=== PATIENT | male | born 1935 | race Caucasian/White ===

== ENCOUNTER → 2016-05-04 | Outpatient (CLI) | payer MEDICARE ==
[2016-05-04 10:56] LABS: CHOLESTEROL 166.31 mg/dL (0-200); Direct HDL 70 mg/dL (>40); TRIGLYCERIDES 105 mg/dL (<150)
[2016-05-04 11:06] LABS: DIRECT LDL 61 mg/dL (<100)
== END ==
LOC: OD 09:46
PROVIDERS: ATTEND Internal Medicine
DX: E78.5 Hyperlipidemia, unspecified (principal); E55.9 Vitamin D deficiency, unspecified; E03.9 Hypothyroidism, unspecified
CPT/HCPCS: 36415; 80061; 82306; 84443

== ENCOUNTER 2016-06-05 19:14 | Emergency (ER) | payer MEDICARE ==
--- NOTE | 2016-06-05 19:24 | ER Document Report ---
ED Medical Screen (RME) - General Stated Complaint: SHORTNESS OF BREATH Mode of Arrival: Wheelchair Information source: Patient, Relative Notes: pt presents with c/o SOB, leg pain, and SARAH that started today. Pt has hx of dementia. Denies CAD, hx HTN, hypothyroid. Denies v/d/f. I have greeted and performed a rapid initial assessment of this patient. A comprehensive ED assessment and evaluation of the patient, analysis of test results and completion of the medical decision making process will be conducted by additional ED providers. TRAVEL OUTSIDE OF THE [place] IN LAST 30 DAYS: No - Related Data Allergies/Adverse Reactions: carbamazepine [From Tegretol] Allergy (Intermediate, Verified 12/15/15 19:44) hydromorphone HCl [From Dilaudid] Allergy (Verified 12/15/15 19:44) phenytoin sodium [From Dilantin] Allergy (Verified 12/15/15 19:44) phenytoin sodium extended [From Dilantin] Allergy (Verified 12/15/15 19:44) Past Medical History - Past Medical History Cardiac Medical History: Reports: Hx Coronary Artery Disease, Hx Heart Attack, Hx Hypercholesterolemia, Hx Hypertension Endocrine Medical History: Reports: Hx Hypothyroidism Musculoskeltal Medical History: Reports Hx Arthritis, Reports Hx Gout Skin Medical History: Reports Hx Cellulitis Psychiatric Medical History: Reports: Hx Dementia Past Surgical History: Reports: Hx Abdominal Surgery, Hx Cardiac Catheterization , Hx Orthopedic Surgery - left rotator cuff repair - Immunizations Hx Diphtheria, Pertussis, Tetanus Vaccination: Yes - Tetanus given in ER 08 14 12
[2016-06-05 19:55] LABS: ABSOLUTE BASOPHILS # (AUTO) 0.1 10^3/uL (0.0-0.2); ABSOLUTE EOSINOPHILS # (AUTO) 0.4 10^3/uL (0.0-0.6); ABSOLUTE MONOCYTES (AUTO) 0.7 10^3/uL (0.1-1.4); ABSOLUTE NEUT (AUTO) 2.2 10^3/uL (1.7-8.2); BASOPHILS % (AUTO) 1.5 % (0-2); EOSINOPHILS % (AUTO) 8.2 % (0-6); HEMATOCRIT 37.8 % (37.9-51.0); HEMOGLOBIN 12.8 g/dL (13.5-17.0); HGB HCT DIFFERENCE 0.6; LYMPHOCYTES % (AUTO) 36.7 % (13-45); MEAN CORPUSCULAR HEMOGLOBIN 32.1 pg (27.0-33.4); MEAN CORPUSCULAR HGB CONC 33.8 g/dL (32.0-36.0); MEAN CORPUSCULAR VOLUME 95 fl (80-97); MONOCYTES % (AUTO) 12.8 % (3-13); RED BLOOD COUNT 3.98 10^6/uL (4.35-5.55); RED CELL DISTRIBUTION WIDTH 14.4 % (11.5-14.0); SEGMENTED NEUTROPHILS % (AUTO) 40.8 % (42-78); WHITE BLOOD COUNT 5.5 10^3/uL (4.0-10.5)
[2016-06-05 20:13] LABS: ALANINE AMINOTRANSFERASE 39 U/L (21-72); ALBUMIN 4.2 g/dL (3.5-5.0); ALKALINE PHOSPHATASE 120 U/L (38-126); ANION GAP 11 (5-19); ASPARTATE AMINO TRANSFERASE 35 U/L (17-59); BILIRUBIN,TOTAL 0.3 mg/dL (0.2-1.3); BLOOD UREA NITROGEN 29 mg/dL (7-20); CALCIUM 10.2 mg/dL (8.4-10.2); CARBON DIOXIDE 29 mmol/L (22-30); CHLORIDE 106 mmol/L (98-107); CREATINE KINASE 154 U/L (55-170); CREATININE RESULT 1.33 mg/dL (0.52-1.25); GLUCOSE 105 mg/dL (75-110); POTASSIUM 4.8 mmol/L (3.6-5.0); SODIUM 145.7 mmol/L (137-145); TOTAL PROTEIN 7.3 g/dL (6.3-8.2)
--- NOTE | 2016-06-05 20:13 | EKG REPORT ---
SEVERITY:- ABNORMAL ECG - SINUS RHYTHM LEFT ANTERIOR FASCICULAR BLOCK LEFT VENTRICULAR HYPERTROPHY : Confirmed by: Priyank Valente 05-Jun-2016 20:13:23
[2016-06-05 20:25] LABS: CREATINE KINASE MB 2.69 ng/mL (<4.55); TROPONIN I < 0.012 ng/mL
--- NOTE | 2016-06-05 21:14 | ER Document Report ---
ED General - General Chief Complaint: Breathing Difficulty Stated Complaint: SHORTNESS OF BREATH Mode of Arrival: Wheelchair Information source: Relative Cannot obtain history due to: Dementia Notes: Patient is an 81-year-old male with past medical history of severe dementia, oriented only to name baseline and a history of hypertension and hyperlipidemia who presents an episode of shortness of breath earlier. At time of arrival patient denies any complaints and family states that he is not normally able to communicate well regarding his needs or complaints. They state only that he appeared to be breathing heavy and asked to come to the hospital. He has not seen his prior care doctor for today's concerns. The family notes that is not his baseline. His otherwise limited secondary to patient's severe dementia. TRAVEL OUTSIDE OF THE [place] IN LAST 30 DAYS: No - Related Data Allergies/Adverse Reactions: carbamazepine [From Tegretol] Allergy (Intermediate, Verified 12/15/15 19:44) hydromorphone HCl [From Dilaudid] Allergy (Verified 12/15/15 19:44) phenytoin sodium [From Dilantin] Allergy (Verified 12/15/15 19:44) phenytoin sodium extended [From Dilantin] Allergy (Verified 12/15/15 19:44) Past Medical History - General Information source: Patient, Relative Cannot obtain history due to: Dementia - Social History Smoking Status: Never Smoker Chew tobacco use (# tins/day): No Frequency of alcohol use: None Drug Abuse: None Lives with: Family Family History: Reviewed & Not Pertinent Patient has suicidal ideation: No Patient has homicidal ideation: No - Past Medical History Cardiac Medical History: Reports: Hx Coronary Artery Disease, Hx Heart Attack, Hx Hypercholesterolemia, Hx Hypertension Endocrine Medical History: Reports: Hx Hypothyroidism Renal/ Medical History: Denies: Hx Peritoneal Dialysis Musculoskeltal Medical History: Reports Hx Arthritis, Reports Hx Gout Skin Medical History: Reports Hx Cellulitis Psychiatric Medical History: Reports: Hx Dementia Past Surgical History: Reports: Hx Abdominal Surgery, Hx Cardiac Catheterization , Hx Orthopedic Surgery - left rotator cuff repair - Immunizations Hx Diphtheria, Pertussis, Tetanus Vaccination: Yes - Tetanus given in ER 08 14 12 Hx Pneumococcal Vaccination: 03/27/09 Review of Systems - Review of Systems Notes: Constitutional: Negative for fever. HENT: Negative for sore throat. Eyes: Negative for visual changes. Cardiovascular: Negative for chest pain. Respiratory: Negative for shortness of breath. Gastrointestinal: Negative for abdominal pain, vomiting or diarrhea. Genitourinary: Negative for dysuria. Musculoskeletal: Negative for back pain. Skin: Negative for rash. Neurological: Negative for headaches, weakness or numbness. 10 point ROS negative except as marked above and in HPI. Physical Exam - Vital signs Vitals: Temp Pulse Resp BP Pulse Ox 98.0 F 70 16 136/76 H 96 06/05/16 19:24 06/05/16 19:24 06/05/16 19:24 06/05/16 19:24 06/05/16 19:24 Interpretation: Normal Notes: PHYSICAL EXAMINATION: GENERAL: In no distress. Demented and alert but oriented only to person HEAD: Atraumatic, normocephalic. EYES: Pupils equal round and reactive to light, extraocular movements intact, sclera anicteric, conjunctiva are normal. ENT: nares patent, oropharynx clear without exudates. Moist mucous membranes. NECK: Normal range of motion, supple without lymphadenopathy LUNGS: Breath sounds clear to auscultation bilaterally and equal. No wheezes rales or rhonchi. HEART: Regular rate and rhythm without murmurs ABDOMEN: Soft, nontender, normoactive bowel sounds. No guarding, no rebound. No masses appreciated. EXTREMITIES: Normal range of motion, no pitting or edema. No cyanosis. NEUROLOGICAL: No focal neurological deficits. Moves all extremities spontaneously and on command. PSYCH: Oriented only to person SKIN: Warm, Dry, normal turgor, no rashes or lesions noted. Course - Re-evaluation Re-evalutation: 06/05/16 21:11 Patient presents with multiple vague complaints that did not appear to be concerning for any acute life-threatening pathology. Patient is demented and his history is otherwise limited but he appears quite comfortable at time of evaluation the family states they wanted him to be "checked out" to be sure that nothing was wrong given how he was breathing earlier today which they describe as hyperventilation. Vitals are within normal limits at triage and at time of discharge. Physical examination is unremarkable. Patient has tolerated oral intake without difficulty. Patient was not noted to be in distress at any point during their ER visit. At this time, based on the reassuring evaluation, I do not suspect an acute NM, pulmonary embolus, aortic dissection, acute intra-abdominal pathology, stroke, or sepsis. His laboratories , chest x-ray, and EKG are all unremarkable. Will discharge with return precautions and follow-up recommendations. Verbal discharge instructions given a the bedside and opportunity for questions given. Medication warnings reviewed. Patient is in agreement with this plan and has verbalized understanding of return precautions and the need for primary care follow-up in the next 24-72 hours. - Vital Signs Vital signs: Temp Pulse Resp BP Pulse Ox 98.0 F 68 16 136/77 H 97 06/05/16 19:24 06/05/16 21:20 06/05/16 21:20 06/05/16 21:20 06/05/16 21:20 - Laboratory Result Diagrams: 06/05/16 19:45 06/05/16 19:45 Laboratory results interpreted by me: 06/05/16 06/05/16 19:45 19:45 RBC 3.98 L Hgb 12.8 L Hct 37.8 L RDW 14.4 H Seg Neutrophils % 40.8 L Eosinophils % 8.2 H Sodium 145.7 H BUN 29 H Creatinine 1.33 H Est GFR (Non-Af Amer) 51 L - Diagnostic Test Radiology reviewed: Image reviewed, Reports reviewed Radiology results interpreted by me: 06/06/16 03:15 Chest x-ray: No acute infiltrate - EKG Interpretation by Me Additional EKG results interpreted by me: 06/06/16 03:15 Normal sinus rhythm. Rate 64. No ST elevations or depressions. QTc 475 Discharge - Discharge Clinical Impression: Shortness of breath Condition: Good Disposition: HOME, SELF-CARE Additional Instructions: Please return to the emergency room immediately if you experience any concerning symptoms including high fevers, severe headache, chest pain, difficulty breathing, abdominal pain, slurred speech, numbness or weakness in your arms or legs, or any other symptom that concerns you. Referrals: GARIMA NEGRON MD [Primary Care Provider] - Follow up as needed
[2016-06-05 21:29] VITALS: BP 136/77
== END 2016-06-05 21:20 | disposition home or self-care (01) ==
LOC: ER 19:14
DX: R06.02 Shortness of breath (principal); F03.90 Unspecified dementia, unspecified severity, without behavioral disturbance, psychotic disturbance, mood disturbance, and anxiety
CPT/HCPCS: 36415; 71010; 80053; 82550; 82553; 84484; 85025; 93005; 93010; 99285

== ENCOUNTER 2016-09-30 10:44 | Emergency (ER) | payer MEDICARE ==
--- NOTE | 2016-09-30 11:02 | ER Document Report ---
ED Medical Screen (RME) - General Chief Complaint: General Weakness Stated Complaint: LEFT LEG/SHOULDER PAIN Time Seen by Provider: 09/30/16 10:59 Mode of Arrival: Wheelchair Information source: Relative Notes: Is an 81-year-old man with a history of dementia, gout, hypothyroidism and dyslipidemia. At baseline, the patient normally ambulates with a walker. The patient is brought in by his family for evaluation because he is been complaining of left foot, shoulder and left hip pain. States that he has been limping which is new for him and that it also appears that he started having pain to the right hip on their way to the ER. They deny that the patient has had any falls. They deny any recent infections. Patient is followed by Rafael Trent MD TRAVEL OUTSIDE OF THE [place] IN LAST 30 DAYS: No - Related Data Allergies/Adverse Reactions: carbamazepine [From Tegretol] Allergy (Intermediate, Verified 09/30/16 10:50) hydromorphone HCl [From Dilaudid] Allergy (Verified 09/30/16 10:50) phenytoin sodium [From Dilantin] Allergy (Verified 09/30/16 10:50) phenytoin sodium extended [From Dilantin] Allergy (Verified 09/30/16 10:50) Past Medical History - Social History Frequency of alcohol use: None Drug Abuse: None - Past Medical History Cardiac Medical History: Reports: Hx Coronary Artery Disease, Hx Heart Attack, Hx Hypercholesterolemia, Hx Hypertension Endocrine Medical History: Reports: Hx Hypothyroidism Renal/ Medical History: Denies: Hx Peritoneal Dialysis Musculoskeltal Medical History: Reports Hx Arthritis, Reports Hx Gout Skin Medical History: Reports Hx Cellulitis Psychiatric Medical History: Reports: Hx Dementia Past Surgical History: Reports: Hx Abdominal Surgery, Hx Cardiac Catheterization , Hx Genitourinary Surgery - prostate surgery, Hx Orthopedic Surgery - left rotator cuff repair - Immunizations Hx Diphtheria, Pertussis, Tetanus Vaccination: Yes - Tetanus given in ER 05 21 12 Physical Exam - Vital signs Vitals: Temp Pulse Resp BP Pulse Ox 98.5 F 70 16 112/67 94 09/30/16 10:53 09/30/16 10:53 09/30/16 10:53 09/30/16 10:53 09/30/16 10:53 Course - Vital Signs Vital signs: Temp Pulse Resp BP Pulse Ox 98.5 F 70 16 112/67 94 07/07/17 10:53 09/30/16 10:53 09/30/16 10:53 09/30/16 10:53 09/30/16 10:53
[2016-09-30 11:28] LABS: ABSOLUTE BASOPHILS # (AUTO) 0.1 10^3/uL (0.0-0.2); ABSOLUTE EOSINOPHILS # (AUTO) 0.4 10^3/uL (0.0-0.6); ABSOLUTE MONOCYTES (AUTO) 0.8 10^3/uL (0.1-1.4); ABSOLUTE NEUT (AUTO) 4.2 10^3/uL (1.7-8.2); BASOPHILS % (AUTO) 0.7 % (0-2); EOSINOPHILS % (AUTO) 5.2 % (0-6); HEMATOCRIT 40.2 % (37.9-51.0); HEMOGLOBIN 13.2 g/dL (13.5-17.0); HGB HCT DIFFERENCE -0.6; LYMPHOCYTES % (AUTO) 27.2 % (13-45); MEAN CORPUSCULAR HEMOGLOBIN 31.2 pg (27.0-33.4); MEAN CORPUSCULAR HGB CONC 32.9 g/dL (32.0-36.0); MEAN CORPUSCULAR VOLUME 95 fl (80-97); MONOCYTES % (AUTO) 11.3 % (3-13); RED BLOOD COUNT 4.24 10^6/uL (4.35-5.55); RED CELL DISTRIBUTION WIDTH 14.2 % (11.5-14.0); SEGMENTED NEUTROPHILS % (AUTO) 55.6 % (42-78); WHITE BLOOD COUNT 7.5 10^3/uL (4.0-10.5)
[2016-09-30 11:43] LABS: ALANINE AMINOTRANSFERASE 28 U/L (21-72); ALBUMIN 4.1 g/dL (3.5-5.0); ALKALINE PHOSPHATASE 130 U/L (38-126); ANION GAP 11 (5-19); ASPARTATE AMINO TRANSFERASE 18 U/L (17-59); BILIRUBIN,DIRECT 0.3 mg/dL (0.0-0.4); BILIRUBIN,TOTAL 0.6 mg/dL (0.2-1.3); BLOOD UREA NITROGEN 25 mg/dL (7-20); CALCIUM 9.3 mg/dL (8.4-10.2); CARBON DIOXIDE 24 mmol/L (22-30); CHLORIDE 107 mmol/L (98-107); CREATININE RESULT 1.51 mg/dL (0.52-1.25); GLUCOSE 91 mg/dL (75-110); POTASSIUM 4.3 mmol/L (3.6-5.0); SODIUM 142.2 mmol/L (137-145); TOTAL PROTEIN 7.1 g/dL (6.3-8.2); URIC ACID 4.8 mg/dL (3.5-8.5)
--- NOTE | 2016-09-30 11:44 | RADIOLOGY REPORT (SQ) ---
EXAM DESCRIPTION: PELVIS AP COMPLETED DATE/TIME: 09/30/2016 11:34 am REASON FOR STUDY: pain COMPARISON: None. TECHNIQUE: AP supine view of the pelvis LIMITATIONS: None. FINDINGS: Bony structures appear demineralized. No acute fractures. Arthritic changes seen both hips with joint narrowing. Operative changes seen of the soft tissues. Arthritic changes lower lumbar spine. SI joints intact. If an occult fracture suspected clinically, consider followup imaging. IMPRESSION: Arthritic changes. No acute fractures. TECHNICAL DOCUMENTATION: JOB ID: [id number] [employer]- All Rights Reserved
--- NOTE | 2016-09-30 11:45 | RADIOLOGY REPORT (SQ) ---
EXAM DESCRIPTION: SHOULDER LEFT 2 OR MORE VIEWS COMPLETED DATE/TIME: 09/30/2016 11:34 am REASON FOR STUDY: left shoulder pain COMPARISON: 06/20/2015, 05/27/2007 NUMBER OF VIEWS: Three views. TECHNIQUE: Internal rotation, external rotation, and Y view images acquired of the left shoulder. LIMITATIONS: None. FINDINGS: MINERALIZATION: Osteopenic BONES: No acute fracture or dislocation. No worrisome bone lesions. JOINTS: No glenohumeral dislocation. Mild acromioclavicular joint bony spurring. No AC joint wideni ng. VISUALIZED LUNGS AND RIBS: No pneumothorax. No rib fracture. SOFT TISSUES: No radiopaque foreign body. OTHER: Mild cardiomegaly IMPRESSION: No acute changes TECHNICAL DOCUMENTATION: JOB ID: [id number] [employer]- All Rights Reserved
--- NOTE | 2016-09-30 11:46 | RADIOLOGY REPORT (SQ) ---
EXAM DESCRIPTION: FOOT LEFT 2 VIEWS COMPLETED DATE/TIME: 09/30/2016 11:34 am REASON FOR STUDY: left foot pain COMPARISON: None. NUMBER OF VIEWS: Three views. TECHNIQUE: AP, lateral and oblique radiographic images acquired of the left foot. LIMITATIONS: None. FINDINGS: MINERALIZATION: Osteopenic BONES: No acute fracture or dislocation. No worrisome bone lesions. JOINTS: No effusions. SOFT TISSUES: No soft tissue swelling. No foreign body. OTHER: No other significant finding. IMPRESSION: NEGATIVE STUDY OF THE LEFT FOOT. NO RADIOGRAPHIC EVIDENCE OF ACUTE INJURY. TECHNICAL DOCUMENTATION: JOB ID: [id number] [employer]- All Rights Reserved
[2016-09-30] MEDS ORDERED: NORMAL SALINE 1000 ML 1,000 ML IV ONE (11:56)
[2016-09-30] MEDS ORDERED: HYDROCODONE/ACETAMINOPHEN 5-325 MG TABLET PO ONE (12:36)
--- NOTE | 2016-09-30 12:37 | ER Document Report ---
ED General - General Chief Complaint: General Weakness Stated Complaint: LEFT LEG/SHOULDER PAIN Time Seen by Provider: 09/30/16 10:59 Mode of Arrival: Wheelchair Information source: Patient, Relative Notes: 81-year-old male history of dementia gallops presents with complaints of left medial ankle pain associated with redness. Patient was complaining of the pain yesterday family noticed redness today. Denying fevers chills nausea vomiting or diarrhea TRAVEL OUTSIDE OF THE [place] IN LAST 30 DAYS: No - HPI Onset: Yesterday Onset/Duration: Sudden Quality of pain: Achy Severity: Mild Pain Level: 1 Associated symptoms: Leg swelling, Other Exacerbated by: Movement Relieved by: Denies Similar symptoms previously: Yes Recently seen / treated by doctor: Yes - Related Data Allergies/Adverse Reactions: carbamazepine [From Tegretol] Allergy (Intermediate, Verified 09/30/16 10:50) hydromorphone HCl [From Dilaudid] Allergy (Verified 09/30/16 10:50) phenytoin sodium [From Dilantin] Allergy (Verified 09/30/16 10:50) phenytoin sodium extended [From Dilantin] Allergy (Verified 09/30/16 10:50) Past Medical History - General Information source: Relative - Social History Smoking Status: Former Smoker Cigarette use (# per day): No Chew tobacco use (# tins/day): No Smoking Education Provided: No Frequency of alcohol use: None Drug Abuse: None Family History: Reviewed & Not Pertinent Patient has suicidal ideation: No Patient has homicidal ideation: No - Past Medical History Cardiac Medical History: Reports: Hx Coronary Artery Disease, Hx Heart Attack, Hx Hypercholesterolemia, Hx Hypertension Endocrine Medical History: Reports: Hx Hypothyroidism Renal/ Medical History: Denies: Hx Peritoneal Dialysis Musculoskeltal Medical History: Reports Hx Arthritis, Reports Hx Gout Skin Medical History: Reports Hx Cellulitis Psychiatric Medical History: Reports: Hx Dementia Past Surgical History: Reports: Hx Abdominal Surgery, Hx Cardiac Catheterization , Hx Genitourinary Surgery - prostate surgery, Hx Orthopedic Surgery - left rotator cuff repair - Immunizations Hx Diphtheria, Pertussis, Tetanus Vaccination: Yes - Tetanus given in ER 08 14 12 Hx Pneumococcal Vaccination: 03/27/09 Review of Systems - Review of Systems Notes: REVIEW OF SYSTEMS: CONSTITUTIONAL : Denies fever, chills, or sweats. Denies recent illness. EENT: Denies eye, ear, throat, or mouth pain or symptoms. Denies nasal or sinus congestion or discharge. Denies throat, tongue, or mouth swelling or difficulty swallowing. CARDIOVASCULAR: Denies chest pain. Denies palpitations or racing or irregular heart beat. Denies ankle edema. RESPIRATORY: Denies cough, cold, or chest congestion. Denies shortness of breath, difficulty breathing, or wheezing. GASTROINTESTINAL: Denies abdominal pain or distention. Denies nausea, vomiting , or diarrhea. Denies blood in vomitus, stools, or per rectum. Denies black, tarry stools. Denies constipation. GENITOURINARY: Denies difficulty urinating, painful urination, burning, frequency, blood in urine, or discharge. MUSCULOSKELETAL: Left medial ankle redness pain otherwise left-sided shoulder pain SKIN: Denies rash, lesions or sores. HEMATOLOGIC : Denies easy bruising or bleeding. LYMPHATIC: Denies swollen, enlarged glands. NEUROLOGICAL: Denies confusion or altered mental status. Denies passing out or loss of consciousness. Denies dizziness or lightheadedness. Denies headache. Denies weakness or paralysis or loss of use of either side. Denies problems with gait or speech. Denies sensory loss, numbness, or tingling. Denies seizures. PSYCHIATRIC: Denies anxiety or stress. Denies depression, suicidal ideation, or homicidal ideation. ALL OTHER SYSTEMS REVIEWED AND NEGATIVE. Dictation was performed using [employer] voice recognition software PHYSICAL EXAMINATION: GENERAL: Well-appearing, well-nourished and in no acute distress. HEAD: Atraumatic, normocephalic. EYES: Pupils equal round and reactive to light, extraocular movements intact, sclera anicteric, conjunctiva are normal. ENT: Nares patent, oropharynx clear without exudates. Moist mucous membranes. NECK: Normal range of motion, supple without lymphadenopathy LUNGS: Breath sounds clear to auscultation bilaterally and equal. No wheezes rales or rhonchi. HEART: Regular rate and rhythm without murmurs ABDOMEN: Soft, nontender, nondistended abdomen. No guarding, no rebound. No masses appreciated. Musculoskeletal: Normal range of motion, no pitting or edema. No cyanosis. NEUROLOGICAL: Cranial nerves grossly intact. Normal speech, normal gait. Normal sensory, motor exams PSYCH: Normal mood, normal affect. SKIN: Area of erythema is noted around the medial ankle, there is no streaking no drainage ankle is tender to palpation Physical Exam - Vital signs Vitals: Temp Pulse Resp BP Pulse Ox 98.5 F 70 16 112/67 94 09/30/16 10:53 09/30/16 10:53 09/30/16 10:53 09/30/16 10:53 09/30/16 10:53 Course - Re-evaluation Re-evalutation: 09/30/16 17:41 Given that there is no white count elevation no fever, I have low suspicion for cellulitis of the left ankle, however family has been made very aware of this concern. I also spoke to them in regards to concern for a DVT, he denies history of blood clots and given that the pain and redness and swelling are just at the ankle and are not related with the calf I have very low suspicion for a DVT but family has been made aware of this as well. I will therefore treat the patient for gout with understand if symptoms worsen they must return immediately for reevaluation and care Patient will be treated with prednisone for his gout, I will not use colchicine as the patient has acute renal insufficiency, he was given IV fluids and family admits that he is not hydrating well After performing a Medical Screening Examination, I estimate there is LOW risk for OPEN FRACTURE, COMPARTMENT SYNDROME, TENDON RUPTURE, ACUTE NEUROVASCULAR INJURY, or RETAINED FOREIGN BODY, thus I consider the discharge disposition reasonable. Also, there is no evidence or peritonitis, sepsis, or toxicity. I have reevaluated this patient multiple times and no significant life threatening changes are noted. The patient and I have discussed the diagnosis and risks, and we agree with discharging home with close follow-up with the understanding that symptoms and presentations can change. We also discussed returning to the Emergency Department immediately if new or worsening symptoms occur. We have discussed the symptoms which are most concerning (e.g., changing or worsening pain, fever, numbness, weakness, cool or painful digits) that necessitate immediate return. 09/30/16 17:42 - Vital Signs Vital signs: Temp Pulse Resp BP Pulse Ox 97.5 F 63 18 121/71 95 09/30/16 13:51 09/30/16 13:51 09/30/16 13:51 09/30/16 13:51 09/30/16 13:51 - Laboratory Result Diagrams: 09/30/16 11:12 09/30/16 11:12 Laboratory results interpreted by me: 09/30/16 09/30/16 11:12 11:12 RBC 4.24 L Hgb 13.2 L RDW 14.2 H BUN 25 H Creatinine 1.51 H Est GFR ( Amer) 54 L Est GFR (Non-Af Amer) 44 L Alkaline Phosphatase 130 H - Diagnostic Test Radiology reviewed: Image reviewed - no Acute fractures, Reports reviewed Discharge - Discharge Clinical Impression: Acute renal injury Left ankle pain Qualifiers: Chronicity: acute Qualified Code(s): M25.572 - Pain in left ankle and joints of left foot Gout Qualifiers: Gout site: ankle Gout etiology: unspecified cause Chronicity: acute Laterality : left Qualified Code(s): M10.9 - Gout, unspecified Condition: Stable Disposition: HOME, SELF-CARE Additional Instructions: If the area of redness worsens, or fevers are noted, then this would be an infectious process rather than just gout. You must return immediately or be seen by her primary care physician for reevaluation at that point. Return immediately if there are any other concerns Prescriptions: Hydrocodone/Acetaminophen [[place] 5-325 mg Tablet] 1 tab PO Q6 #10 tablet Prednisone [Deltasone 20 mg Tablet] 3 tab PO DAILY 5 Days Referrals: GARIMA NEGRON MD [Primary Care Provider] - Follow up tomorrow
[2016-09-30 13:52] VITALS: BP 121/71
== END 2016-09-30 13:55 | disposition home or self-care (01) ==
LOC: ER 10:44
DX: N17.9 Acute kidney failure, unspecified (principal); M25.512 Pain in left shoulder; M79.605 Pain in left leg; M10.9 Gout, unspecified; R53.1 Weakness; Z87.891 Personal history of nicotine dependence
CPT/HCPCS: 99285; 36415; 84550; 85025; 80053; 73620; 72170; 73030; J7030; A9270

== ENCOUNTER → 2017-01-23 | Outpatient (CLI) | payer MEDICARE ==
[2017-01-23 10:05] LABS: ABSOLUTE BASOPHILS # (AUTO) 0.1 10^3/uL (0.0-0.2); ABSOLUTE EOSINOPHILS # (AUTO) 0.3 10^3/uL (0.0-0.6); ABSOLUTE LYMPHOCYTES (AUTO) 2.6 10^3/uL (0.5-4.7); ABSOLUTE MONOCYTES (AUTO) 0.6 10^3/uL (0.1-1.4); ABSOLUTE NEUT (AUTO) 2.4 10^3/uL (1.7-8.2); BASOPHILS % (AUTO) 1.3 % (0-2); EOSINOPHILS % (AUTO) 5.6 % (0-6); HEMATOCRIT 38.4 % (37.9-51.0); HEMOGLOBIN 12.9 g/dL (13.5-17.0); HGB HCT DIFFERENCE 0.3; LYMPHOCYTES % (AUTO) 43.2 % (13-45); MEAN CORPUSCULAR HEMOGLOBIN 31.8 pg (27.0-33.4); MEAN CORPUSCULAR HGB CONC 33.6 g/dL (32.0-36.0); MEAN CORPUSCULAR VOLUME 95 fl (80-97); MONOCYTES % (AUTO) 10.1 % (3-13); RED BLOOD COUNT 4.06 10^6/uL (4.35-5.55); RED CELL DISTRIBUTION WIDTH 15.7 % (11.5-14.0); SEGMENTED NEUTROPHILS % (AUTO) 39.8 % (42-78)
[2017-01-23 10:30] LABS: ALANINE AMINOTRANSFERASE 33 U/L (21-72); ALBUMIN 4.3 g/dL (3.5-5.0); ALKALINE PHOSPHATASE 116 U/L (38-126); ANION GAP 12 (5-19); ASPARTATE AMINO TRANSFERASE 27 U/L (17-59); BILIRUBIN,DIRECT 0.3 mg/dL (0.0-0.4); BILIRUBIN,TOTAL 0.6 mg/dL (0.2-1.3); BLOOD UREA NITROGEN 26 mg/dL (7-20); CALCIUM 9.8 mg/dL (8.4-10.2); CARBON DIOXIDE 28 mmol/L (22-30); CHLORIDE 109 mmol/L (98-107); CHOLESTEROL 172.89 mg/dL (0-200); CREATININE RESULT 1.48 mg/dL (0.52-1.25); Direct HDL 53 mg/dL (>40); GLUCOSE 96 mg/dL (75-110); POTASSIUM 4.2 mmol/L (3.6-5.0); SODIUM 148.5 mmol/L (137-145); TOTAL PROTEIN 7.3 g/dL (6.3-8.2); TRIGLYCERIDES 188 mg/dL (<150); URIC ACID 4.6 mg/dL (3.5-8.5)
[2017-01-23 10:44] LABS: DIRECT LDL 79 mg/dL (<100)
[2017-01-23 10:51] LABS: VLDL CHOLESTEROL 37.6 mg/dL (10-31)
== END ==
LOC: OD 09:08
PROVIDERS: ATTEND Internal Medicine
DX: M10.9 Gout, unspecified (principal); I10 Essential (primary) hypertension; E87.5 Hyperkalemia; E03.9 Hypothyroidism, unspecified
CPT/HCPCS: 36415; 80053; 80061; 84443; 84550; 85025

== ENCOUNTER 2017-09-26 20:41 | Emergency (ER) | payer MEDICARE ==
[2017-09-26] MEDS ORDERED: ACETAMINOPHEN 325 MG TABLET PO ONE (21:31)
[2017-09-26] MEDS ORDERED: NORMAL SALINE 1000 ML 1,000 ML IV ONE (22:32)
--- NOTE | 2017-09-26 22:33 | ER Document Report ---
ED General - General Chief Complaint: Leg Pain Stated Complaint: LEG PAIN Time Seen by Provider: 09/26/17 22:31 Notes: The patient is an 82-year-old male, past medical history severe dementia hypertension, presents with 1 day of refusing to walk. In addition, he was found to have a fever and slightly hypoxic to 87% on room air. He does not wear oxygen at home. Family says that he has frequent episodes of gout in his ankles and this can sometimes cause him to have difficulty walking. Patient is unable to provide any additional history. TRAVEL OUTSIDE OF THE [place] IN LAST 30 DAYS: No - Related Data Allergies/Adverse Reactions: carbamazepine [From Tegretol] Allergy (Intermediate, Verified 09/30/16 10:50) hydromorphone HCl [From Dilaudid] Allergy (Verified 09/30/16 10:50) phenytoin sodium [From Dilantin] Allergy (Verified 09/30/16 10:50) phenytoin sodium extended [From Dilantin] Allergy (Verified 09/30/16 10:50) Past Medical History - General Information source: Relative Cannot obtain history due to: Dementia - Social History Smoking Status: Unknown if Ever Smoked Family History: Reviewed & Not Pertinent - Past Medical History Cardiac Medical History: Reports: Hx Coronary Artery Disease, Hx Heart Attack, Hx Hypercholesterolemia, Hx Hypertension Endocrine Medical History: Reports: Hx Hypothyroidism Renal/ Medical History: Denies: Hx Peritoneal Dialysis Musculoskeltal Medical History: Reports Hx Arthritis, Reports Hx Gout Skin Medical History: Reports Hx Cellulitis Psychiatric Medical History: Reports: Hx Dementia Past Surgical History: Reports: Hx Abdominal Surgery, Hx Cardiac Catheterization , Hx Genitourinary Surgery - prostate surgery, Hx Orthopedic Surgery - left rotator cuff repair - Immunizations Hx Diphtheria, Pertussis, Tetanus Vaccination: Yes - Tetanus given in ER 08 14 12 Hx Pneumococcal Vaccination: 03/27/09 Review of Systems - Review of Systems -: Yes ROS unobtainable due to patient's medical condition Physical Exam - Vital signs Vitals: Temp Pulse Resp BP Pulse Ox 102.2 F H 89 20 140/71 H 88 L 09/26/17 21:28 09/26/17 21:28 09/26/17 21:28 09/26/17 21:28 09/26/17 21:28 - Notes Notes: PHYSICAL EXAMINATION: GENERAL: Well-appearing, well-nourished and in no acute distress. HEAD: Atraumatic, normocephalic. EYES: Pupils equal round and reactive to light, extraocular movements intact, sclera anicteric, conjunctiva are normal. ENT: nares patent, oropharynx clear without exudates. Moist mucous membranes. NECK: Normal range of motion, supple without lymphadenopathy LUNGS: Breath sounds clear to auscultation bilaterally and equal. No wheezes rales or rhonchi. HEART: Regular rate and rhythm without murmurs ABDOMEN: Soft, nontender, normoactive bowel sounds. No guarding, no rebound. No masses appreciated. EXTREMITIES: Normal range of motion, no pitting or edema. No cyanosis. NEUROLOGICAL: Moving all 4 extremities. AAOx1 SKIN: Warm, Dry, normal turgor, no rashes or lesions noted. Course - Re-evaluation Re-evalutation: Patient appears well and he was in no respiratory distress. His oxygenation remained above 95% while in the ER and BP remained normal. Chest x-ray does not show any focal infiltrates and rest of blood work is unremarkable. He does have 15 WBCs in his urine with leukocyte esterase. No other source for his fever, so will start him on Keflex for a UTI. He also has some gout in his ankles and feet. Due to his ADEN, provided him with a dose of prednisone for the gout pain. Patient ambulated with his walker without any difficulty before discharge. He will follow-up with his primary care physician for further evaluation and treatment this week. - Vital Signs Vital signs: Temp Pulse Resp BP Pulse Ox 99.2 F 89 21 H 121/83 96 09/27/17 00:49 09/26/17 21:28 09/27/17 05:01 09/27/17 05:01 09/27/17 05:01 - Laboratory Result Diagrams: 09/26/17 22:57 09/26/17 22:57 Laboratory results interpreted by me: 09/26/17 09/26/17 09/26/17 22:57 22:57 22:57 WBC 11.4 H RBC 3.90 L Hgb 12.5 L Hct 37.1 L RDW 14.9 H Seg Neuts % (Manual) 87 H Lymphocytes % (Manual) 5 L Abs Neuts (Manual) 9.9 H VBG pH 7.46 H VBG pCO2 33.6 L Chloride 110 H BUN 35 H Creatinine 1.60 H Est GFR ( Amer) 50 L Est GFR (Non-Af Amer) 41 L Glucose 133 H AST 68 H Ur Leukocyte Esterase 09/27/17 03:16 WBC RBC Hgb Hct RDW Seg Neuts % (Manual) Lymphocytes % (Manual) Abs Neuts (Manual) VBG pH VBG pCO2 Chloride BUN Creatinine Est GFR ( Amer) Est GFR (Non-Af Amer) Glucose AST Ur Leukocyte Esterase SMALL H - Diagnostic Test Radiology reviewed: Image reviewed, Reports reviewed Radiology results interpreted by me: CXR: NAD - EKG Interpretation by Me EKG shows normal: Sinus rhythm, [place], Intervals, QRS Complexes, ST-T Waves Rate: Normal When compared to previous EKG there are: No significant change Discharge - Discharge Clinical Impression: Ambulatory dysfunction UTI (urinary tract infection) Qualifiers: Urinary tract infection type: site unspecified Hematuria presence: without hematuria Qualified Code(s): N39.0 - Urinary tract infection, site not specified Fever Qualifiers: Fever type: unspecified Qualified Code(s): R50.9 - Fever, unspecified Condition: Stable Disposition: HOME, SELF-CARE Additional Instructions: URINARY TRACT INFECTION: Your evaluation indicates that you have a urinary tract infection. This is due to germs growing in the bladder. This is a common problem. This infection usually responds quickly to antibiotics. Your antibiotic should be taken exactly as prescribed. Drink plenty of fluids -- three to four quarts a day. Occasionally, a bladder anesthetic will be prescribed to help stop the feeling of urgency until the antibiotic has a chance to clear the infection. This may cause your urine to be dark orange. Certain urine infections require a culture. If the doctor obtained a culture, the results will be back in two days. You should call to see if a change in treatment is needed. A repeat urinalysis after you finish treatment is often recommended. The physician will let you know if further testing is required. Call the doctor if you develop fever, chills, flank pain, inability to urinate, or blood in the urine. ANTIBIOTIC THERAPY: You have been given an antibiotic prescription. It's important that you take all the medication, unless instructed otherwise by your physician. Failure to complete the entire course can result in relapse of your condition. Common side effects of antibiotics include nausea, intestinal cramping, or diarrhea. Women may develop vaginal yeast infections, and babies can get yeast (thrush) in the mouth following the use of antibiotics. Contact your physician if you develop significant side effects from this medication. Allergy to this antibiotic can result in hives, wheezing, faintness, or itching. If symptoms of allergy occur, stop the medication and call the doctor. CEPHALEXIN: The antibiotic you've been prescribed is a member of the cephalosporin class. This type of antibiotic covers a wide variety of infections, including those of the skin, lungs, and urinary tract. It's useful for staph infections. This antibiotic is slightly similar to the penicillin family. In rare cases , a person who is allergic to penicillin will also be allergic to this medication. If you have had a severe allergic reaction to penicillin, and have not taken this antibiotic since that time, notify your doctor. Antibiotics which cover many germs ("broad spectrum" antibiotics) are more likely to cause diarrhea or "yeast" infections. Women prone to vaginal yeast problems may suffer an attack after taking this antibiotic. In infants, oral thrush (white spots "stuck" on the cheek) or yeast diaper rash may result. See your doctor if these problems occur. Call at once if you develop itching, hives , shortness of breath, or lightheadedness. FOLLOW-UP CARE: If you have been referred to a physician for follow-up care, call the physician s office for an appointment as you were instructed or within the next two days. If you experience worsening or a significant change in your symptoms, notify the physician immediately or return to the Emergency Department at any time for re-evaluation. Prescriptions: Cephalexin Monohydrate [Keflex 500 mg Capsule] 500 mg PO BID 7 Days capsule Referrals: GARIMA NEGRON MD [Primary Care Provider] - Follow up as needed
--- NOTE | 2017-09-26 22:53 | RADIOLOGY REPORT (SQ) ---
EXAM DESCRIPTION: XR CHEST 1 VIEW COMPLETED DATE/TME: 09/26/2017 22:32 CLINICAL HISTORY: 82 years Male, fever COMPARISON: 3.12.17 NUMBER OF VIEWS/TECHNIQUE: 1/AP FINDINGS: Adequate lung volume, clear parenchyma, normal cardiac silhouette, and intact bony thorax. IMPRESSION: No acute cardiopulmonary findings.
[2017-09-26 23:02] LABS: HEMATOCRIT 37.1 % (37.9-51.0); HEMOGLOBIN 12.5 g/dL (13.5-17.0); MEAN CORPUSCULAR HEMOGLOBIN 32.1 pg (27.0-33.4); MEAN CORPUSCULAR HGB CONC 33.8 g/dL (32.0-36.0); MEAN CORPUSCULAR VOLUME 95 fl (80-97); PLATELET COUNT 300 10^3/uL (150-450); RED CELL DISTRIBUTION WIDTH 14.9 % (11.5-14.0); WHITE BLOOD COUNT 11.4 10^3/uL (4.0-10.5)
[2017-09-26 23:08] LABS: VENOUS BLOOD BASE EXCESS 0.2 mmol/L; VENOUS BLOOD HCO3 23.4 mmol/L (20-32); VENOUS BLOOD PCO2 33.6 mmHg (35-63); VENOUS BLOOD PH 7.46 (7.30-7.42)
[2017-09-26 23:14] LABS: INTERNATIONAL RATION (INR) 1.04; PROTHROMBIN TIME 14.1 SEC (11.4-15.4)
[2017-09-26 23:22] LABS: ABSOLUTE LYMPHOCYTES# (MANUAL) 0.6 10^3/uL (0.5-4.7); ABSOLUTE MONOCYTES # (MANUAL) 0.8 10^3/uL (0.1-1.4); ABSOLUTE NEUTROPHILS# (MANUAL) 9.9 10^3/uL (1.7-8.2); BASOPHILS % (MANUAL) 0 % (0-2); EOSINOPHILS % (MANUAL) 1 % (0-6); LYMPHOCYTES % (MANUAL) 5 % (13-45); MONOCYTES % (MANUAL) 7 % (3-13); SEGMENTED NEUTROPHILS % (MAN) 87 % (42-78); TOTAL CELLS COUNTED 100
[2017-09-26 23:24] LABS: ANISOCYTOSIS SLIGHT; PLATELET COMMENT ADEQUATE; TOXIC GRANULATION SLIGHT
[2017-09-26 23:27] LABS: ALANINE AMINOTRANSFERASE 69 U/L (21-72); ALBUMIN 4.1 g/dL (3.5-5.0); ALKALINE PHOSPHATASE 97 U/L (38-126); ANION GAP 9 (5-19); ASPARTATE AMINO TRANSFERASE 68 U/L (17-59); BILIRUBIN,DIRECT 0.4 mg/dL (0.0-0.4); BILIRUBIN,TOTAL 0.5 mg/dL (0.2-1.3); BLOOD UREA NITROGEN 35 mg/dL (7-20); CALCIUM 9.5 mg/dL (8.4-10.2); CARBON DIOXIDE 25 mmol/L (22-30); CHLORIDE 110 mmol/L (98-107); CREATINE KINASE 147 U/L (55-170); GLUCOSE 133 mg/dL (75-110); POTASSIUM 4.3 mmol/L (3.6-5.0); SODIUM 143.6 mmol/L (137-145); TOTAL PROTEIN 7.4 g/dL (6.3-8.2)
[2017-09-27] MEDS ORDERED: PREDNISONE 20 MG TABLET PO ONE (00:32)
--- NOTE | 2017-09-27 01:23 | RADIOLOGY REPORT (SQ) ---
EXAM DESCRIPTION: CT HEAD WITHOUT IV CONTRAST COMPLETED DATE/TME: 09/26/2017 22:51 CLINICAL HISTORY: 82 years Male, decreased ambulation COMPARISON: 9.20.16 TECHNIQUE: No contrast. Coronal and sagittal reformat. This exam was performed according to our departmental dose-optimization program, which includes automated exposure control, adjustment of the mA and/or kV according to patient size and/or use of iterative reconstruction technique. FINDINGS: No hemorrhage or infarct. No mass, mass effect, or midline shift. Moderate parenchymal volume loss, mild white matter microangiopathy, atherosclerosis, moderate chronic ex vacuo enlargement of the ventricular system, stable. Brain and extra-axial structures appear otherwise intact. IMPRESSION: No acute findings.
[2017-09-27] MEDS ORDERED: NORMAL SALINE 1000 ML 1,000 ML IV ONE (01:42)
[2017-09-27 03:46] LABS: AMORPHOUS SEDIMENT,URINE TRACE /HPF; APPEARANCE,URINE CLOUDY; BILIRUBIN,URINE NEGATIVE (NEGATIVE); COLOR,URINE YELLOW; GLUCOSE, URINE NEGATIVE (NEGATIVE); KETONES,URINE NEGATIVE (NEGATIVE); LEUKOCYTE ESTERASE,URINE SMALL (NEGATIVE); NITRITE,URINE NEGATIVE (NEGATIVE); PROTEIN,URINE NEGATIVE (NEGATIVE); URINE SPECIFIC GRAVITY 1.014; UROBILINOGEN,URINE NEGATIVE mg/dL (<2.0)
[2017-09-27] MEDS ORDERED: CEPHALEXIN 500 MG CAPSULE PO ONE ×3 (04:06→04:10)
[2017-09-27 05:21] VITALS: BP 121/83
--- NOTE | 2017-09-27 09:18 | EKG REPORT ---
SEVERITY:- ABNORMAL ECG - ATRIAL FIBRILLATION, V-RATE 86-116 LEFT ANTERIOR FASCICULAR BLOCK BORDERLINE T ABNORMALITIES, ANT-LAT LEADS : Confirmed by: Ernst Kaba MD 27-Sep-2017 09:18:04
== END 2017-09-27 05:35 | disposition home or self-care (01) ==
LOC: ER 20:41
DX: R26.2 Difficulty in walking, not elsewhere classified (principal); R50.9 Fever, unspecified; N39.0 Urinary tract infection, site not specified; F03.90 Unspecified dementia, unspecified severity, without behavioral disturbance, psychotic disturbance, mood disturbance, and anxiety; E03.9 Hypothyroidism, unspecified; I25.10 Atherosclerotic heart disease of native coronary artery without angina pectoris; E78.00 Pure hypercholesterolemia, unspecified; I10 Essential (primary) hypertension; I25.2 Old myocardial infarction
CPT/HCPCS: 93005; 99285; 36415; 87040; 87086; 82550; 84550; 85025; 85610; 87088; 80053; 81001; 87186; 82803; 83605; 71045; 70450; 93010; A9270 ×3; J7030 ×2; J7512